=== PATIENT | male | born 1950 | race Caucasian/White ===

== ENCOUNTER 2019-01-14 17:26 | Emergency (ER) | payer OTHER ==
[~2019-01-14] VITALS: Ht 182.9 cm; Wt 94.3 kg
[~2019-01-14 17:26] MED LIST: HYDACE5 PO; NAPR500 PO; NAPR550 PO
[2019-01-14 17:58] LABS: BASOPHILS ABSOLUTE AUTO 0.05 K/mm3 (0.00-0.23); BASOPHILS PERCENT AUTO 1 % (0-2); EOSINOPHILS ABSOLUTE AUTO 0.16 K/mm3 (0.00-0.68); EOSINOPHILS PERCENT AUTO 2 % (0-6); Hematocrit 43.3 % (37.0-53.0); Hemoglobin 15.1 g/dL (13.5-17.5); IMMATURE GRAN ABSOLUTE AUTO 0.01 K/mm3 (0.00-0.10); IMMATURE GRAN PERCENT AUTO 0 % (0-1); LYMPHOCYTES ABSOLUTE AUTO 1.84 K/mm3 (0.84-5.20); LYMPHOCYTES PERCENT AUTO 23 % (21-46); MONOCYTES ABSOLUTE AUTO 0.48 K/mm3 (0.16-1.47); MONOCYTES PERCENT AUTO 6 % (4-13); Mean Corpuscular HGB 32.4 pg (26.0-34.0); Mean Corpuscular HGB Conc 34.9 g/dL (31.5-36.5); Mean Corpuscular Volume 93 fL (80-100); Mean Platelet Volume 9.1 fL (9.1-12.4); NEUTROPHILS ABSOLUTE AUTO 5.35 K/mm3 (1.96-9.15); NEUTROPHILS PERCENT AUTO 68 % (41-73); Platelet Count 295 K/mm3 (150-400); RDW Coefficient Variation 13.1 % (11.7-14.2); RDW Standard Deviation 44.8 fL (35.1-46.3); Red Blood Cell Count 4.66 M/mm3 (4.30-5.90); White Blood Cell Count 7.89 K/mm3 (4.00-11.30)
[2019-01-14 18:17] LABS: Alanine Aminotransfer (ALT/SGP 48 U/L (12-78); Albumin, Blood 4.5 g/dL (3.4-5.0); Alk Phos 112 U/L (50-136); Anion Gap 9 mmol/L (6-16); Aspartate Aminotrans (AST/SGOT 36 U/L (12-37); Bilirubin, Total 0.5 mg/dL (0.1-1.0); Blood Urea Nitrogen 19 mg/dL (8-24); Bun/Creatinine Ratio 20.8 (12.0-20.0); CO2, Blood 22 mmol/L (21-32); Calcium, Blood 9.6 mg/dL (8.5-10.1); Chloride, Blood 102 mmol/L (98-108); Creatinine, Blood 0.91 mg/dL (0.60-1.20); Globulin, Blood 4.6 g/dL (2.2-4.0); Glomerular Filtration Rate >60 (60-); Glucose, Blood 119 mg/dL (70-99); Potassium, Blood 4.4 mmol/L (3.5-5.5); Sodium, Blood 133 mmol/L (136-145); Total Protein, Blood 9.1 g/dL (6.4-8.2); Troponin I <0.015 ng/mL (0.000-0.040)
[2019-01-14 18:45] LABS: Source, Urine Clean Catch
[2019-01-14 19:01] LABS: Bilirubin, Urine Neg (Neg); Blood, Urine 4+ (Neg); Glucose Qualitative, Urine Neg (Neg); Ketones, Urine Neg (Neg); Leukocyte Esterase, Urine Neg (Neg); Nitrite, Urine Neg (Neg); Protein, Urine 2+ (Neg); Urobilinogen, Urine NORM (Normal)
[2019-01-14 19:13] LABS: Appearance, Urine Clear (Clear); Color, Urine Yellow (P-Yellow)
[2019-01-14 19:14] LABS: Squamous Epithelial Cells Mod /hpf (Few)
[2019-01-14 19:15] LABS: Bacteria Rare /hpf; Red Blood Cells, Urine 0-2 /hpf (0-2); White Blood Cells, Urine 0-2 /hpf (0-5)
[2019-04-23] MEDS ORDERED: Omega-31000 MG PO (13:07)
[2019-04-23] MEDS ORDERED: Hydrochloroth12.5 MG PO (13:07)
[2019-04-23] MEDS ORDERED: Aspir 8181 MG PO (13:07)
[2019-04-23] MEDS ORDERED: LOSARTAN POTAS100 MG PO (13:08)
[2019-04-23] MEDS ORDERED: Lipitor20 MG PO (13:09)
[2019-04-23] MEDS ORDERED: OMEPRAZOLE20 MG PO (13:09)
[2019-04-23] MEDS ORDERED: POTASSIUM GLUCONATE PO (13:11)
== END 2019-01-14 21:31 | disposition home or self-care (01) ==
LOC: ER 17:26
PROVIDERS: Emergency Medicine
DX: I10 Essential (primary) hypertension (principal); R55 Syncope and collapse; Z79.899 Other long term (current) drug therapy; F17.220 Nicotine dependence, chewing tobacco, uncomplicated
CPT/HCPCS: 36415; 71046; 80053; 81001; 83880; 84484; 85025; 93005; 93010; 99284-25

== ENCOUNTER 2019-04-24 07:57 | Day surgery (SDC) | payer OTHER ==
[~2019-04-24] VITALS: Ht 182.9 cm; Wt 100.0 kg
[~2019-04-24 07:57] MED LIST changes: +Aspir 8181 MG PO; +Hydrochloroth12.5 MG PO; +LOSARTAN POTAS100 MG PO; +Lipitor20 MG PO; +OMEPRAZOLE20 MG PO; +Omega-31000 MG PO; +POTASSIUM GLUCONATE PO
[2019-04-24] MEDS ORDERED: Isosorbide Mono30 MG PO (11:10)
--- NOTE | 2019-04-24 13:58 | NUR ---
TR BAND REMOVED. NO BLEEDING, PAIN OR HEMATOMA NOTED. SITE CLEANED AND CLOTH DOT PLACED. PT ABLE TO DRESS SELF WITH NO COMPLICATIONS. PT STATES UNDERSTANDING OF DC INSTRUCTIONS. PT PLACED IN BRACE AND SLING. VSS. PT DC'D IN WHEELCHAIR WITH FRIEND AND HOSPITAL VOLUNTEER. DENIES ANY QUESTIONS OR CONCERNS.
== END 2019-04-24 22:40 | disposition home or self-care (01) ==
LOC: MHTC 07:57
DX: I25.10 Atherosclerotic heart disease of native coronary artery without angina pectoris (principal); I11.9 Hypertensive heart disease without heart failure; E78.5 Hyperlipidemia, unspecified; F17.220 Nicotine dependence, chewing tobacco, uncomplicated; Z79.899 Other long term (current) drug therapy; Z79.82 Long term (current) use of aspirin
CPT/HCPCS: 85347; 93454; 93571; 99152; 99153; C1769; C1887; C1894; J1644; J2250; J3010; J7030; Q9967

== ENCOUNTER 2021-04-13 20:39 | Inpatient (IN) | payer OTHER ==
[~2021-04-13] VITALS: Ht 182.9 cm; Wt 96.8 kg
[~2021-04-13 20:39] MED LIST changes: +Isosorbide Mono30 MG PO; +OMEGA-3 FISH O1 EAC6 PO; -Omega-31000 MG PO
[2021-04-13 21:14] LABS: BASOPHILS ABSOLUTE AUTO 0.01 K/mm3 (0.00-0.23); BASOPHILS PERCENT AUTO 0 % (0-2); EOSINOPHILS PERCENT AUTO 0 % (0-6); Hematocrit 36.9 % (37.0-53.0); Hemoglobin 13.4 g/dL (13.5-17.5); IMMATURE GRAN ABSOLUTE AUTO 0.03 K/mm3 (0.00-0.10); IMMATURE GRAN PERCENT AUTO 0 % (0-1); LYMPHOCYTES ABSOLUTE AUTO 0.86 K/mm3 (0.84-5.20); LYMPHOCYTES PERCENT AUTO 9 % (21-46); MONOCYTES PERCENT AUTO 3 % (4-13); Mean Corpuscular HGB 32.6 pg (26.0-34.0); Mean Corpuscular HGB Conc 36.3 g/dL (31.5-36.5); Mean Corpuscular Volume 90 fL (80-100); Mean Platelet Volume 9.8 fL (9.1-12.4); NEUTROPHILS ABSOLUTE AUTO 8.24 K/mm3 (1.96-9.15); NEUTROPHILS PERCENT AUTO 87 % (41-73); Platelet Count 307 K/mm3 (150-400); RDW Coefficient Variation 12.2 % (11.7-14.2); Red Blood Cell Count 4.11 M/mm3 (4.30-5.90); White Blood Cell Count 9.44 K/mm3 (4.00-11.30)
[2021-04-13 21:28] LABS: Alanine Aminotransfer (ALT/SGP 62 U/L (12-78); Albumin, Blood 3.3 g/dL (3.4-5.0); Albumin/Globulin Ratio 0.7 (0.8-1.8); Alk Phos 69 U/L (50-136); Anion Gap 13 mmol/L (6-16); Aspartate Aminotrans (AST/SGOT 61 U/L (12-37); Bilirubin, Total 0.8 mg/dL (0.1-1.0); Blood Urea Nitrogen 37 mg/dL (8-24); Bun/Creatinine Ratio 31.1 (12.0-20.0); CO2, Blood 18 mmol/L (21-32); Calcium, Blood 8.3 mg/dL (8.5-10.1); Chloride, Blood 103 mmol/L (98-108); Creatinine, Blood 1.19 mg/dL (0.60-1.20); Glomerular Filtration Rate >60 (60-); Glucose, Blood 173 mg/dL (70-99); Potassium, Blood 3.8 mmol/L (3.5-5.5); Sodium, Blood 134 mmol/L (136-145); Total Protein, Blood 8.3 g/dL (6.4-8.2); Troponin I <0.015 ng/mL (0.000-0.040)
[2021-04-13 21:55] LABS: SARS-Cov-2 (COVID-19) PCR, MMC POSITIVE (NEGATIVE)
[2021-04-13 21:58] LABS: International Normalized Ratio 1.11; Prothrombin Time Results 11.9 Sec (9.7-11.5)
[2021-04-14] MEDS ORDERED: ASPI81CH PO (02:14)
[2021-04-14] MEDS ORDERED: ATOR10 PO (02:15)
[2021-04-14] MEDS ORDERED: HYDCHL50 PO (02:16)
[2021-04-14] MEDS ORDERED: ISOSORBIDE MONO30 MG PO (02:17)
[2021-04-14] MEDS ORDERED: LOSARTAN POTAS100 M1 PO (02:18)
[2021-04-14] MEDS ORDERED: OMEP20ER PO (02:19)
[2021-04-14] MEDS ORDERED: Potassium Gluconate PO (02:21)
[2021-04-14 04:39] LABS: BASOPHILS ABSOLUTE AUTO 0.01 K/mm3 (0.00-0.23); BASOPHILS PERCENT AUTO 0 % (0-2); EOSINOPHILS ABSOLUTE AUTO 0.01 K/mm3 (0.00-0.68); EOSINOPHILS PERCENT AUTO 0 % (0-6); Hematocrit 35.5 % (37.0-53.0); Hemoglobin 12.5 g/dL (13.5-17.5); Mean Corpuscular HGB 32.2 pg (26.0-34.0); Mean Corpuscular HGB Conc 35.2 g/dL (31.5-36.5); Mean Corpuscular Volume 92 fL (80-100); Mean Platelet Volume 9.7 fL (9.1-12.4); Platelet Count 276 K/mm3 (150-400); RDW Coefficient Variation 12.2 % (11.7-14.2); RDW Standard Deviation 41.1 fL (35.1-46.3); Red Blood Cell Count 3.88 M/mm3 (4.30-5.90); White Blood Cell Count 8.27 K/mm3 (4.00-11.30)
[2021-04-14 04:48] LABS: IMMATURE GRAN ABSOLUTE AUTO 0.03 K/mm3 (0.00-0.10); IMMATURE GRAN PERCENT AUTO 0 % (0-1); LYMPHOCYTES ABSOLUTE AUTO 1.73 K/mm3 (0.84-5.20); LYMPHOCYTES PERCENT AUTO 21 % (21-46); MONOCYTES ABSOLUTE AUTO 0.24 K/mm3 (0.16-1.47); MONOCYTES PERCENT AUTO 3 % (4-13); NEUTROPHILS ABSOLUTE AUTO 6.25 K/mm3 (1.96-9.15); NEUTROPHILS PERCENT AUTO 76 % (41-73)
[2021-04-14 05:00] LABS: Alanine Aminotransfer (ALT/SGP 57 U/L (12-78); Albumin, Blood 3.1 g/dL (3.4-5.0); Albumin/Globulin Ratio 0.7 (0.8-1.8); Alk Phos 64 U/L (50-136); Anion Gap 10 mmol/L (6-16); Aspartate Aminotrans (AST/SGOT 56 U/L (12-37); Blood Urea Nitrogen 36 mg/dL (8-24); Bun/Creatinine Ratio 30.3 (12.0-20.0); CO2, Blood 20 mmol/L (21-32); Calcium, Blood 8.5 mg/dL (8.5-10.1); Chloride, Blood 104 mmol/L (98-108); Creatinine, Blood 1.19 mg/dL (0.60-1.20); Globulin, Blood 4.7 g/dL (2.2-4.0); Glomerular Filtration Rate >60 (60-); Glucose, Blood 133 mg/dL (70-99); Potassium, Blood 3.9 mmol/L (3.5-5.5); Sodium, Blood 134 mmol/L (136-145); Total Protein, Blood 7.8 g/dL (6.4-8.2)
--- NOTE | 2021-04-14 16:53 | NUR ---
PT IS A/OX4, PLEASANT AND COOPERATIVE, THE PT IS ON O2 @ 5L/MIN VIA NC AT REST AT THIS TIME, DOWN FROM 13L/MIN O2 VIA OXYMIZER THIS AM. PT HAS VISABLE TREMORS, APPEARS MILDLY ANXIOUS. PT DENIES ANY PAIN. THE PT HAS BEEN BEDREST T/O THE DAY TODAY. CALL LIGHT IN REACH. WILL CONTINUE TO MONITOR AND ASSESS FOR CHANGES
--- NOTE | 2021-04-15 06:53 | NUR ---
SHIFT SUMMARY PT IS A 70 Y/O MALE, ADMITTED FOR ACUTE HYPOXEMIC RESPIRATORY FAILURE R/T COVID-19. HE IS A&O X 3, FORGETFUL AT TIMES. CURRENTLY ON 5L O2 VIA NC, SATTING > 90%. VITAL SIGNS STABLE. NO C/O ACUTE PAIN OR NAUSEA. NO ACUTE CHANGES IN PT CONDITION NOTED DURING THE NIGHT. WILL CONTINUE TO MONITOR AND TREAT PER EMAR UNTIL HAND OFF TO DAY SHIFT RN.
--- NOTE | 2021-04-15 17:30 | NUR ---
PT IS A/OX4, PLEASANT AND COOPERATIVE. PT DENIES ANY PAIN. THIS AM WHILE RESTING IN BED THE PT APPEARED TO BE BREATHING EASILY ON O2 @ 4L/MIN VIA NC AND WAS EXPECTING DISCHARGE,HOWEVER, THE PT WAS ASSISTED UP FOR LUNCH AND IN DOING SO HE BECAME VERY LIGHTHEADED TO THE POINT HE FELT LIKE HE WAS GOING TO FAINT. HE WAS ASSISTED TO THE CHAIR AND HIS O2 SAT'S DROPPED TO 80%. O2 WAS INCREASED TO 13L/MIN VIA OXYMIZER. DR. SINCLAIR [place] NOTIFIED AND DISCHARGE WAS POSTPONED FOR TODAY, THE PT IS RAQUEL ON 8L/MIN O2 VIA OXYMIZER AT REST. WILL CONTINUE TO MONITOR AND ASSESS FOR CHANGES, CALL LIGHT IN REACH
--- NOTE | 2021-04-16 06:24 | NUR ---
SHIFT SUMMARY A/O, ABLE TO MAKE NEEDS KNOWN. COOPERATIVE WITH CARE. CALLS AND ANSWER QUESTIONS APPROPRIATELY. NO C/O PAIN/DISCOMFORT. UP 1-2P ASSIST /c FWW TO BSC. NO ACUTE CHANGES NOTED OVERNIGHT. REMAINS ON 5L VIA OXYMIZER. O2 OFF THIS AM DURING MORNING MED PASS. SPO2 REMAINED GREATER THAN 90% DURING WHOLE ADMINISTRATION. AFTER COUGHING A FEW TIMES. O2 PLACED BACK ON R/T DESAT. NO OTHER ACUTE CHANGES NOTED OVERNIGHT. STATED REST WELL. BED REMAINS IN LOWEST POSITION. CALL LIGHT AND BELONGINGS WITHIN REACH. CONTINUE WITH CURRENT PLAN OF CARE. REPORT TO ONCOMING RN.
--- NOTE | 2021-04-16 19:10 | NUR ---
PT IS AO X 4 PT IS TREMULOUS AT TIMES, PT IS COVID POSITIVE,PT ON 5L OXYMIZER,PT IS DNR,NO ACUTE CHANGES, PT IS IN BED, BED IN LOW POSTION.CALL LIGHT WITHIN REACH. WILL CONTINUE TO MONITOR
--- NOTE | 2021-04-17 05:05 | NUR ---
PT RESTING IN BED ALERT AND ORIENTED X4 MAKING NO COMPLAITS AT THIS TIME. PT GETS ANXIOUSE WHEN UP TO CAMODE, AND STANDS THOUGH HE IS TOP HEAVY. DESATS TO LOW 80'S AT REST WITHOUT O2 HE HAS PULLED IT OFF IN HIS SLEEP. DESATS TO LOW 80'S WITH EXCERTION WELL. PT REMAINS TREMULOUS WITH ACTIVITY. sPOKE WITH SON FOR UPDATE AROUND 2300. WILL CONTINUE TO MONITOR.
--- NOTE | 2021-04-17 17:21 | NUR ---
SHIFT SUMMARY 70 YR MALE ADMITED WITH ACHUTE HYPOXICE RESP FAILURE R/T COVID 19. PT REMAINS ON 6L OXIMEIZER N/C SATS MAINTAINING IN THE 90'S. PT TOLERATES ACTIVITY FAIR AND DESATS INTO THE 80'S WHEN SITTING UP TO EDGE OF BED. PT HAS FREQUENT COUGHING EPISODES AND MD ORDERED TESSLON PEARLS TODAY TO ADDRESS. BS>274 TODAY AND REPORTED TO MD, NEW INSULIN ORDERS RECIEVED. NO OTHER CHANGES THIS SHIFT TO REPORT.
--- NOTE | 2021-04-18 07:06 | NUR ---
SHIFT SUMMARY PT IS A 71 Y/O MALE, ADMITTED FOR ACUTE HYPOXEMIC RESPIRATORY FAILURE R/T COVID. HE IS A&O X 3, ANXIOUS AT TIMES. AT HS, PT'S BLOOD SUGAR WAS 469. THE HOSPITALIST DR SUBRAMANIAN WAS NOTIFIED, AND PT WAS STARTED ON MEDIUM SLIDING SCALE AC/HS HUMALOG. HE WAS GIVEN 10 UNIT HUMALOG AND 10 UNIT SEMGLEE. NO C/O ACUTE PAIN, NAUSEA OR SOB. VITAL SIGNS STABLE. NO ACUTE CHANGES IN PT CONDITION NOTED DURING THE NIGHT. WILL CONTINUE TO MONITOR AND TREAT PER EMAR UNTIL HAND OFF TO DAY SHIFT RN.
--- NOTE | 2021-04-18 17:30 | NUR ---
Blood sugar was [address] Chaparro was caalled and RN received a new order for lispro 8 units once time and rechecked at 1530pm. Blood sugar was rechecked at again ,it was 445 , a new order of 15 units lispro was given and lantus was changed from 15 units to 40 bed time. Check CBG on 04/19/21 at 2am. Vital signs are stable . continue to monitor.
[2021-04-19 04:54] LABS: BASOPHILS ABSOLUTE AUTO 0.01 K/mm3 (0.00-0.23); BASOPHILS PERCENT AUTO 0 % (0-2); EOSINOPHILS ABSOLUTE AUTO 0.02 K/mm3 (0.00-0.68); EOSINOPHILS PERCENT AUTO 0 % (0-6); Hematocrit 35.8 % (37.0-53.0); IMMATURE GRAN ABSOLUTE AUTO 0.05 K/mm3 (0.00-0.10); IMMATURE GRAN PERCENT AUTO 1 % (0-1); LYMPHOCYTES ABSOLUTE AUTO 1.01 K/mm3 (0.84-5.20); LYMPHOCYTES PERCENT AUTO 10 % (21-46); MONOCYTES ABSOLUTE AUTO 0.19 K/mm3 (0.16-1.47); MONOCYTES PERCENT AUTO 2 % (4-13); Mean Corpuscular HGB 32.7 pg (26.0-34.0); Mean Corpuscular HGB Conc 36.3 g/dL (31.5-36.5); Mean Corpuscular Volume 90 fL (80-100); Mean Platelet Volume 10.3 fL (9.1-12.4); NEUTROPHILS ABSOLUTE AUTO 8.45 K/mm3 (1.96-9.15); NEUTROPHILS PERCENT AUTO 87 % (41-73); Platelet Count 306 K/mm3 (150-400); RDW Standard Deviation 39.6 fL (35.1-46.3); Red Blood Cell Count 3.97 M/mm3 (4.30-5.90); White Blood Cell Count 9.73 K/mm3 (4.00-11.30)
[2021-04-19 05:11] LABS: Alanine Aminotransfer (ALT/SGP 60 U/L (12-78); Albumin/Globulin Ratio 0.6 (0.8-1.8); Alk Phos 77 U/L (50-136); Anion Gap 7 mmol/L (6-16); Aspartate Aminotrans (AST/SGOT 19 U/L (12-37); Bilirubin, Total 0.6 mg/dL (0.1-1.0); Blood Urea Nitrogen 41 mg/dL (8-24); Bun/Creatinine Ratio 39.8 (12.0-20.0); CO2, Blood 22 mmol/L (21-32); Calcium, Blood 8.7 mg/dL (8.5-10.1); Chloride, Blood 103 mmol/L (98-108); Creatinine, Blood 1.03 mg/dL (0.60-1.20); Globulin, Blood 4.7 g/dL (2.2-4.0); Glomerular Filtration Rate >60 (60-); Glucose, Blood 298 mg/dL (70-99); Magnesium, Blood 2.2 mg/dL (1.6-2.4); Potassium, Blood 4.7 mmol/L (3.5-5.5); Sodium, Blood 132 mmol/L (136-145); Total Protein, Blood 7.7 g/dL (6.4-8.2)
--- NOTE | 2021-04-19 05:45 | NUR ---
SHIFT SUMMARY PT IS A 59 Y/O MALE, ADMITTED FOR ACUTE HYPOXEMIC RESPIRATORY FAILURE R/T COVID. HE IS A&O X 3, 1PA TO THE BSC. NO C/O ACUTE PAIN, NAUSEA OR SOB. ON 6L O2 VIA NC, SATTING > 90%. VITAL SIGNS STABLE. NO ACUTE CHANGES IN PT CONDITION NOTED DURING THE NIGHT. WILL CONTINUE TO MONITOR AND TREAT PER EMAR UNTIL HAND OFF TO DAY SHIFT RN.
--- NOTE | 2021-04-19 18:49 | NUR ---
Alert and oriented x3 ,continue on oxygen 6L N/C , no SOB noted. CBG ABOVE [address] SAEED was notified , recieved 10 units before lunch. CBG was 386 at dinner , Dr mann ordered another 15 units once time and recheck CBG on 04/20/21 at 2am. NO S/S hyperglycemia noted . Continue to monitor.
--- NOTE | 2021-04-19 23:53 | NUR ---
SEVERE COUGH CAUSING PATIENT TO DROP SATURATIONS INTO THE MID TO HIGH 80'S WITH INTERMITTANT BRONCHOSPASMS WHEN COUGH PROLONGED. GAVIN KATZ (2) GIVEN WITH POSITIVE RESULT AT BEDTIME.
--- NOTE | 2021-04-20 04:57 | NUR ---
PATIENT IS A&OX4, NO COMPLAINTS OF PAIN OR DISCOMFORT. DESATURATES INTO MID TO HIGH 80'S USING URINAL OR ANY VERY MINIMAL EXERTION. AROUND 0330, THE PATIENT USED THE URINAL AND WAS UNABLE TO RECOVER ON 8 LITERS OXIMIZER SO 02 WAS INCREASED TO 10 LITERS PER MINUTE. RT INFORMED. PATIENT INTERMITTANTLY ANXIOUS WHICH ALSO DROPS HIS SATS. CAPILLARY BLOOD SUGARS WERE 332 AT HS AND 293 AT 0200. 200MG TESSALON PEARLES DEFINATELY HELPED PATIENT WITH HIS COUGH
--- NOTE | 2021-04-20 18:16 | NUR ---
PATIENT IS ALERT AND ORIENTED AND COOPERATIVE WITH CARE. ON 6L O2 VIA OXYMIZER. DESATS WITH COUGHING AND WORKING WITH THERAPY BUT RECOVERS WELL ON HIS OWN. WORKED WITH PT AND OT TODAY. DIET CHANGED TO CARDIAC AND ADA TODAY. WILL CONTINUE TO MONITOR
[2021-04-21 05:26] LABS: BASOPHILS ABSOLUTE AUTO 0.03 K/mm3 (0.00-0.23); BASOPHILS PERCENT AUTO 0 % (0-2); EOSINOPHILS ABSOLUTE AUTO 0.02 K/mm3 (0.00-0.68); EOSINOPHILS PERCENT AUTO 0 % (0-6); Hematocrit 37.4 % (37.0-53.0); Hemoglobin 13.4 g/dL (13.5-17.5); IMMATURE GRAN ABSOLUTE AUTO 0.08 K/mm3 (0.00-0.10); IMMATURE GRAN PERCENT AUTO 1 % (0-1); LYMPHOCYTES ABSOLUTE AUTO 1.01 K/mm3 (0.84-5.20); LYMPHOCYTES PERCENT AUTO 8 % (21-46); MONOCYTES ABSOLUTE AUTO 0.23 K/mm3 (0.16-1.47); MONOCYTES PERCENT AUTO 2 % (4-13); Mean Corpuscular HGB 32.5 pg (26.0-34.0); Mean Corpuscular HGB Conc 35.8 g/dL (31.5-36.5); Mean Corpuscular Volume 91 fL (80-100); Mean Platelet Volume 10.3 fL (9.1-12.4); NEUTROPHILS ABSOLUTE AUTO 10.84 K/mm3 (1.96-9.15); NEUTROPHILS PERCENT AUTO 89 % (41-73); Platelet Count 322 K/mm3 (150-400); RDW Coefficient Variation 12.2 % (11.7-14.2); RDW Standard Deviation 40.8 fL (35.1-46.3); Red Blood Cell Count 4.12 M/mm3 (4.30-5.90); White Blood Cell Count 12.21 K/mm3 (4.00-11.30)
[2021-04-21 05:53] LABS: Alanine Aminotransfer (ALT/SGP 48 U/L (12-78); Albumin, Blood 2.9 g/dL (3.4-5.0); Albumin/Globulin Ratio 0.6 (0.8-1.8); Alk Phos 76 U/L (50-136); Anion Gap 8 mmol/L (6-16); Aspartate Aminotrans (AST/SGOT 18 U/L (12-37); Bilirubin, Total 0.5 mg/dL (0.1-1.0); Blood Urea Nitrogen 54 mg/dL (8-24); Bun/Creatinine Ratio 49.5 (12.0-20.0); CO2, Blood 20 mmol/L (21-32); Calcium, Blood 8.8 mg/dL (8.5-10.1); Chloride, Blood 105 mmol/L (98-108); Creatinine, Blood 1.09 mg/dL (0.60-1.20); Globulin, Blood 4.7 g/dL (2.2-4.0); Glomerular Filtration Rate >60 (60-); Glucose, Blood 240 mg/dL (70-99); Potassium, Blood 4.8 mmol/L (3.5-5.5); Sodium, Blood 133 mmol/L (136-145); Total Protein, Blood 7.6 g/dL (6.4-8.2)
--- NOTE | 2021-04-21 06:27 | NUR ---
70 year old PT with Covid 19 pneumonia & hypoxia CAD continues on BIoxx & high flow oxygen 6 l high flow. sats greater than 90% per bioxx. Up with 1 assist to BSC for bowel movement. Blood glucose contiens elevated with MD changing from 50 u semglee 1 x day to 40 units BID. BG greater than 300.
[2021-04-22 05:07] LABS: BASOPHILS ABSOLUTE AUTO 0.01 K/mm3 (0.00-0.23); BASOPHILS PERCENT AUTO 0 % (0-2); EOSINOPHILS ABSOLUTE AUTO 0.03 K/mm3 (0.00-0.68); EOSINOPHILS PERCENT AUTO 0 % (0-6); Hematocrit 41.7 % (37.0-53.0); Hemoglobin 14.9 g/dL (13.5-17.5); IMMATURE GRAN PERCENT AUTO 1 % (0-1); LYMPHOCYTES ABSOLUTE AUTO 1.47 K/mm3 (0.84-5.20); LYMPHOCYTES PERCENT AUTO 13 % (21-46); MONOCYTES ABSOLUTE AUTO 0.22 K/mm3 (0.16-1.47); MONOCYTES PERCENT AUTO 2 % (4-13); Mean Corpuscular HGB 32.7 pg (26.0-34.0); Mean Corpuscular HGB Conc 35.7 g/dL (31.5-36.5); Mean Corpuscular Volume 92 fL (80-100); Mean Platelet Volume 10.4 fL (9.1-12.4); NEUTROPHILS ABSOLUTE AUTO 9.97 K/mm3 (1.96-9.15); NEUTROPHILS PERCENT AUTO 84 % (41-73); Platelet Count 354 K/mm3 (150-400); RDW Coefficient Variation 12.3 % (11.7-14.2); RDW Standard Deviation 40.9 fL (35.1-46.3); Red Blood Cell Count 4.55 M/mm3 (4.30-5.90)
[2021-04-22 05:36] LABS: Alanine Aminotransfer (ALT/SGP 51 U/L (12-78); Albumin, Blood 3.1 g/dL (3.4-5.0); Albumin/Globulin Ratio 0.6 (0.8-1.8); Alk Phos 87 U/L (50-136); Anion Gap 10 mmol/L (6-16); Aspartate Aminotrans (AST/SGOT 23 U/L (12-37); Bilirubin, Total 0.7 mg/dL (0.1-1.0); Blood Urea Nitrogen 41 mg/dL (8-24); Bun/Creatinine Ratio 43.4 (12.0-20.0); CO2, Blood 19 mmol/L (21-32); Chloride, Blood 101 mmol/L (98-108); Creatinine, Blood 0.94 mg/dL (0.60-1.20); Globulin, Blood 5.2 g/dL (2.2-4.0); Glomerular Filtration Rate >60 (60-); Glucose, Blood 235 mg/dL (70-99); Potassium, Blood 4.8 mmol/L (3.5-5.5); Sodium, Blood 130 mmol/L (136-145); Total Protein, Blood 8.3 g/dL (6.4-8.2)
--- NOTE | 2021-04-22 06:22 | NUR ---
ENDOF SHIFT REPORT: Pt stating that he did not have any SOB, cough nor trouble breathing overnight. He is on 4.5L NC. Pt is continent and uses urinal. Pt is resting comfortably at this time.
--- NOTE | 2021-04-22 19:03 | NUR ---
SUMMARY- PT A/O X4. BEDREST TODAY, PT HAD FELT TIRED AND SLEPT MOST OF AM. WANTED TO TRY TO GET UP WITH PT AND HAD BEEN DOING LEG EXERCISES AT EDGE OF BED AND SATTING MID 90'S WITH 5L OXYMIZER. 1625 GOT UP TO BC AND HAD COUGHING ATTACK, RN TO GET ROBOTUSSIN AND BY THE TIME RETURNED SATS DROPPED TO 71%, PT PALE, CALLED TREATING ENGINEER HELPER. PT INCREASED TO AIRVO 80L/100%, AFTER RESTING NOW SATTING 95-99%. BP LOW AT 1730, CALLED DR THURSTON, [place] NS BOLUS IN PROGRESS. RR REG 20/HR NOW. AIR FLOW IN ALL LUNG RIDLEY WITH CX ONLY ON L BASE. SITTING UP IN BED AND ABLE TO TOLERATE DINNER, NO SOB, SATS 98%. ON STRICT BEDREST FOR NOW. WILL REPORT TO NOC AND HAVE THEM F/U WITH BP SOON.
--- NOTE | 2021-04-22 19:31 | NUR ---
SPOKE WITH SON EDMOND (Leoncio) AND DAD AT THE SAME TIME, DISCUSSED PT'S RESPIRATORY DISTRESS EPISODE. PT AND FAMILY BOTH DECIDED TO REMAIN FULL CODE WITH INTUBATION IF NEEDED.
--- NOTE | 2021-04-22 20:20 | NUR ---
RT AC IV 20 gauge started during rapid response no documented. PT was recieving IV bolus x 1 l & IV site WNL
--- NOTE | 2021-04-23 02:55 | NUR ---
70 year old MAle with Covid 19 hypoxia continues in enhanced droplet isolation & requires high flow hgeated oxygen via airvo to maintain sats greater than 90%. Toleration of diet ate 100% ADA diet. Newly DX diabetes oon long acting insulin BID & sliding scale PT declines diabetic teaching currently. Had rapid response yesterday for broncospamatic resp event. Lung sounds with rt sided crackle lt lobes diminished. Weaning from high flow airvo per PT. Weak deconditioned seeking placement at SNF, lacks support for home DC.
[2021-04-23 04:57] LABS: BASOPHILS ABSOLUTE AUTO 0.02 K/mm3 (0.00-0.23); BASOPHILS PERCENT AUTO 0 % (0-2); EOSINOPHILS ABSOLUTE AUTO 0.02 K/mm3 (0.00-0.68); EOSINOPHILS PERCENT AUTO 0 % (0-6); Hematocrit 37.7 % (37.0-53.0); Hemoglobin 13.6 g/dL (13.5-17.5); IMMATURE GRAN ABSOLUTE AUTO 0.05 K/mm3 (0.00-0.10); IMMATURE GRAN PERCENT AUTO 1 % (0-1); LYMPHOCYTES ABSOLUTE AUTO 1.09 K/mm3 (0.84-5.20); LYMPHOCYTES PERCENT AUTO 10 % (21-46); MONOCYTES ABSOLUTE AUTO 0.18 K/mm3 (0.16-1.47); MONOCYTES PERCENT AUTO 2 % (4-13); Mean Corpuscular HGB 32.5 pg (26.0-34.0); Mean Corpuscular HGB Conc 36.1 g/dL (31.5-36.5); Mean Corpuscular Volume 90 fL (80-100); Mean Platelet Volume 10.2 fL (9.1-12.4); NEUTROPHILS ABSOLUTE AUTO 9.28 K/mm3 (1.96-9.15); NEUTROPHILS PERCENT AUTO 87 % (41-73); Platelet Count 297 K/mm3 (150-400); RDW Coefficient Variation 12.1 % (11.7-14.2); RDW Standard Deviation 40.1 fL (35.1-46.3); Red Blood Cell Count 4.18 M/mm3 (4.30-5.90); White Blood Cell Count 10.64 K/mm3 (4.00-11.30)
[2021-04-23 05:39] LABS: Alanine Aminotransfer (ALT/SGP 45 U/L (12-78); Albumin, Blood 2.9 g/dL (3.4-5.0); Albumin/Globulin Ratio 0.6 (0.8-1.8); Alk Phos 75 U/L (50-136); Anion Gap 7 mmol/L (6-16); Aspartate Aminotrans (AST/SGOT 16 U/L (12-37); Bilirubin, Total 0.6 mg/dL (0.1-1.0); Blood Urea Nitrogen 41 mg/dL (8-24); Bun/Creatinine Ratio 46.4 (12.0-20.0); CO2, Blood 21 mmol/L (21-32); Calcium, Blood 8.9 mg/dL (8.5-10.1); Chloride, Blood 105 mmol/L (98-108); Creatinine, Blood 0.88 mg/dL (0.60-1.20); Globulin, Blood 4.6 g/dL (2.2-4.0); Glomerular Filtration Rate >60 (60-); Glucose, Blood 145 mg/dL (70-99); Potassium, Blood 4.5 mmol/L (3.5-5.5); Sodium, Blood 133 mmol/L (136-145); Total Protein, Blood 7.5 g/dL (6.4-8.2)
--- NOTE | 2021-04-23 18:15 | NUR ---
PT WAS ADMITED FOR ACUTE HYPOXIC RESPIRATORY FAILLUERE DUE TO COVID. PT HAS A HISTORY OF CAD.GERD.DVT,HLD,HTN AND DIABETES MELLITUS. PT IS ALERT ORIENTED X 4,PT IS ON V60 50L HIGH FLOW FIO2 50%.PT B/P WAS LOW THIS PM AND BOLUS OF 500ML/HR WAS GIVING AND BP IS SLIGHTLY COMING UP,PT IS BED,BED IN LOW POSITION, CALL LIGHT WITHIN WILL CONTINUE TO MONITOR.
--- NOTE | 2021-04-23 22:05 | NUR ---
BLOOD GLUCOSE PT BG 188 THIS EVENING, PT HAS NOT BEEN EATING MUCH. PT HAS 40 UNITS OF SEMGLEE ORDERED FOR BEDTIME. PT DOES NOT NORMALLY TAKE INSULIN AT HOME. SPOKE WITH DR. BENITEZ AND NOTIFIED HIM OF PT BG OF 188. HE STATES IF PT HAS NOT HAD SEMGLEE THIS ADMISSION TO GIVE 1O UNITS INSTEAD OF THE 40 UNITS. BUT IF PT HAS HAD PRIOR DOSES OF SEMGLEE TO GIVE HALF THE DOSE, 20 UNITS. PT HAS HAD PRIOR DOSES OF SEMGLEE PER EMAR. 20 UNITS OF SEMGLEE GIVEN PER ORDERS.
--- NOTE | 2021-04-24 03:34 | NUR ---
SHIFT SUMMARY PT HAS DONE WELL THIS SHIFT. PT REMAINS ON V60 FIO2 50%, SATS STAY AROUND 92%. LUNGS DIMINISHED T/O. PT RESP APPEAR E/U AT REST. PT IS A/OX4 AND COOPERATIVE WITH CARE. BP HAS BEEN STABLE AFTER FLUID BOLUS THAT WAS GIVEN YESTERAY EVENING. PT HAS REMAINED IN BED. CALLS APPROPRIATLY WHEN NEEDING ASSISTANCE. PT DENIES PAIN OR NEEDS FOR MOST OF THE NIGHT. BED IN LOWEST POSITION, CALL LIGHT WITHIN REACH.
--- NOTE | 2021-04-24 17:27 | NUR ---
PT IS ALERT ORIENTED, PT IS COVID POSITIVE,PT DENIES PAIN, N/V,PT IS ON V60,50L FOI2 50% WOTH SATS IN HIGH 90'S, PT IS STABLE IN BED, BED IN LOW POSITON,CALL LIGHT IN REACH WILL CONTINUE TO MONITOR.
--- NOTE | 2021-04-25 05:53 | NUR ---
MEDICAID PLAN COMPLIANCE DIRECTOR SUMMARY PT A/O X4, PLEASANT AND COOPERATIVE. SLEPT WELL TONIGHT. CONTINUES TO BE ON 50LPM WITH 50% FIO2 VIA AIRVO SATTING IN THE LOW TO MID 90'S. CONTINUES TO BE ON BEDREST PT DESATS QUICK. USES URINAL INDEPENDENTLY. LUNG SOUND DIM THROUGHOUT. DENIE PAIN, NAUSEA. ABLE TO MAKE NEEDS KNOWN. NO ACUTE CHANGES. CALL LIGHT WITHIN REACH, WILL CONTINUE TO MONITOR.
[2021-04-25 08:23] LABS: Hematocrit 39.8 % (37.0-53.0); Hemoglobin 14.1 g/dL (13.5-17.5); Mean Corpuscular HGB 32.3 pg (26.0-34.0); Mean Corpuscular HGB Conc 35.4 g/dL (31.5-36.5); Mean Corpuscular Volume 91 fL (80-100); Mean Platelet Volume 9.8 fL (9.1-12.4); Platelet Count 257 K/mm3 (150-400); RDW Coefficient Variation 12.2 % (11.7-14.2); RDW Standard Deviation 40.7 fL (35.1-46.3); Red Blood Cell Count 4.36 M/mm3 (4.30-5.90); White Blood Cell Count 12.61 K/mm3 (4.00-11.30)
[2021-04-25 08:36] LABS: Albumin, Blood 3.1 g/dL (3.4-5.0); Anion Gap 8 mmol/L (6-16); Blood Urea Nitrogen 28 mg/dL (8-24); Bun/Creatinine Ratio 34.6 (12.0-20.0); CO2, Blood 24 mmol/L (21-32); Chloride, Blood 104 mmol/L (98-108); Creatinine, Blood 0.81 mg/dL (0.60-1.20); Glomerular Filtration Rate >60 (60-); Glucose, Blood 91 mg/dL (70-99); Phosphorus, Blood 3.8 mg/dL (2.5-4.9); Potassium, Blood 4.2 mmol/L (3.5-5.5); Sodium, Blood 136 mmol/L (136-145)
--- NOTE | 2021-04-25 18:05 | NUR ---
SHIFT SUMMARY THE PATIENT REMAINS ON AIRVO ON 50LPM AT 50% O2. THE PATIENT HAS BEEN SATTING IN THE 90'S ALL SHIFT. THE PATIENT RECEIVED INSULIN PER SLIDING SCALE COVERAGE. NO ACUTE CHANGES THIS SHIFT. THE PATIENT IS RESTING IN BED. NO CONCERNS AT THIS TIME. THIS NURSE WILL CONTINUE TO MONITOR THE PATIENT UNTIL REPORT IS GIVEN TO THE NEXT NURSE.
--- NOTE | 2021-04-26 03:43 | NUR ---
PATIENT SUMMARY PATIENT IS ALERT AND ORIENTED X4. VS STABLE FOR PATIENT ON RA. O2 SATURATION GREATER THAN 90% ON RA TRHOUGHOUT NIGHT. NO COMPLAINTS OF SHORTNESS OF BREATH OR CHEST PAIN. ENCOURAGED PATIENT TO USE IS AT LEAST 5-10X PER HOUR AND TO INCREASE ACTIVITY TOLERATED. PATIENT COMPLETED LEG RAISES IN BED, 10 PER LEG. VOIDING. ALL CARES COMPLETED AND MEDICATIONS GIVEN ORDERED ACCORDING TO NURSING JUDGEMENT. ALL UNFINISHED CARES ENDORSED TO ONCOMING RN.
--- NOTE | 2021-04-26 17:44 | NUR ---
SHIFT SUMMARY PATIENT ALERT AND ORIENTED. THE PATIENT WORKED WITH PHYSICAL THERAPY TODAY. THE PATIENT STARTED DESATTING WITH EXERTION, THEN RECOVERED AFTER REST. PATIENT IS STILL SATTING BETWEEN 91 AND 92% ON ROOM AIR.
[2021-04-27 05:45] LABS: Albumin, Blood 2.8 g/dL (3.4-5.0); Anion Gap 9 mmol/L (6-16); Blood Urea Nitrogen 28 mg/dL (8-24); Bun/Creatinine Ratio 37.2 (12.0-20.0); CO2, Blood 20 mmol/L (21-32); Calcium, Blood 8.7 mg/dL (8.5-10.1); Chloride, Blood 103 mmol/L (98-108); Creatinine, Blood 0.75 mg/dL (0.60-1.20); Glomerular Filtration Rate >60 (60-); Glucose, Blood 147 mg/dL (70-99); Phosphorus, Blood 3.3 mg/dL (2.5-4.9); Potassium, Blood 4.4 mmol/L (3.5-5.5); Sodium, Blood 132 mmol/L (136-145)
[2021-04-27] MEDS ORDERED: LOSA25 PO (12:32)
[2021-04-27] MEDS ORDERED: Tessalon200 MG PO (12:33)
[2021-04-27] MEDS ORDERED: GLIP5 PO (12:34)
[2021-04-27] MEDS ORDERED: ROBITUSSIN DM PO (12:34)
[2021-04-27] MEDS ORDERED: METF500 PO (12:35)
[2021-04-27] MEDS ORDERED: ALBU90OI INH (12:35)
--- NOTE | 2021-04-27 16:58 | NUR ---
ATTEMPTED HOME 02 EVAL PT 93% RA SITTING UP IN BED. ASSISTED TO EOB SATS 86% ON RA. 2L O2 NC APPLIED SATS 90%. PT UP TO BSC SATS DECREASED TO THE 60'S%- SPORTS PHOTOGRAPHER CALLED.
--- NOTE | 2021-04-27 18:46 | NUR ---
SHIFT SUMMARY PT AAOX4, ABLE TO MAKE NEEDS KNOWN. ANXIOUS AT TIMES. NO C/O PAIN THIS SHIFT. DURING THIS SHIFT WHILE PATIENT WAS HAVING O2 EVAL WITH CHARGE NURSE RONNIE, PT O2 DESATED TO LOWER 60's. PT WAS PLACED ON NON REBREATHER MASK AT 15LPM, SENIOR PENSIONS ADMINISTRATOR INTIATED. PLEASE SEE CN RONNIE NOTED IN REGARDS TO EVENT. PT IS CURRENTLY ON 6LPM O2 VIA NC. SATS >92-94% PT CURRENTLY RESTING IN BED AT THIS TIME. DENIES FEELING OF ANXIETY, PT APPEARS COMFORTABLE AND CALM. PT DISCHARGE POSTPONED ORDERED BY DR. COPELAND DUE TO PATIENT'S CURRENT CONDITION. BED AT LOWEST POSITION. CALL LIGHT WITHIN REACH.
--- NOTE | 2021-04-28 04:43 | NUR ---
SHIFT SUMMARRY PATIENT QUIET THROUGH THE NIGHT. NO ACUTE MEDICAL CHANGES. PATIENT SLEPT WITH O2 AT 6L VIA NC MAINTAINING SATS AT MID 90S WITH NO DISTRSS NOTED.
[2021-04-28 05:44] LABS: Albumin, Blood 2.7 g/dL (3.4-5.0); Anion Gap 6 mmol/L (6-16); Blood Urea Nitrogen 27 mg/dL (8-24); CO2, Blood 24 mmol/L (21-32); Calcium, Blood 8.7 mg/dL (8.5-10.1); Chloride, Blood 103 mmol/L (98-108); Creatinine, Blood 0.79 mg/dL (0.60-1.20); Glomerular Filtration Rate >60 (60-); Glucose, Blood 183 mg/dL (70-99); Phosphorus, Blood 3.7 mg/dL (2.5-4.9); Potassium, Blood 4.5 mmol/L (3.5-5.5); Sodium, Blood 133 mmol/L (136-145)
[2021-04-28 10:19] LABS: PCO2 Arterial 31.8 mmHg (35-45); PO2 Arterial 78.1 mmHg (80-100); pH Blood Arterial 7.43 (7.35-7.45)
--- NOTE | 2021-04-28 18:11 | NUR ---
DISCHARGE PATIENT TRANSFERRED VIA WHEELCHAIR BY [facility] TO [facility]. DISCHARGE PACKET SENT WITH TREER. IV REMOVED WITHOUT DIFFICULTY. REPORT CALLED TO RN IN [facility] COVID UNIT. BELONGINGS SENT WITH PATIENT.
== END 2021-04-28 18:08 | DRG 177 ==
LOC: ER 20:39 → MEDS 04-14 01:54 → ENPENDDIS 04-27 12:02 → MEDS 04-28 18:08
PROVIDERS: Family Medicine; Internal Medicine; Student in an Organized Health Care Education/Training Program; ADMIT Hospitalist
PROC: 5A0955A Assistance with Respiratory Ventilation, Greater than 96 Consecutive Hours, High Flow/Velocity Cannula (ICD-10-PCS; principal; 2021-04-14)
PROC: 8E0ZXY6 Isolation (ICD-10-PCS; 2021-04-14)
PROC: 3E0333Z Introduction of Anti-inflammatory into Peripheral Vein, Percutaneous Approach (ICD-10-PCS; 2021-04-14)
PROC: XW033E5 Introduction of Remdesivir Anti-infective into Peripheral Vein, Percutaneous Approach, New Technology Group 5 (ICD-10-PCS; 2021-04-14)
DX: U07.1 COVID-19 (principal); J96.01 Acute respiratory failure with hypoxia; J12.82 Pneumonia due to coronavirus disease 2019; E87.1 Hypo-osmolality and hyponatremia; Z66 Do not resuscitate; Z20.822 Contact with and (suspected) exposure to COVID-19; E11.9 Type 2 diabetes mellitus without complications; I10 Essential (primary) hypertension; F41.0 Panic disorder [episodic paroxysmal anxiety]; E78.5 Hyperlipidemia, unspecified; K21.9 Gastro-esophageal reflux disease without esophagitis; I25.10 Atherosclerotic heart disease of native coronary artery without angina pectoris; Z98.890 Other specified postprocedural states; Z79.899 Other long term (current) drug therapy; Z79.82 Long term (current) use of aspirin; E11.65 Type 2 diabetes mellitus with hyperglycemia; R19.7 Diarrhea, unspecified
CPT/HCPCS: 36415; 36600; 71045; 71260; 80053; 80069; 82728; 82803; 82947; 83036; 83735; 83880; 84145; 84484; 85025; 85027; 85379; 85610; 86141; 93005; 93010; 94640; 94660; 94761; 94762; 96374; 97110; 97110-CQ; 97161; 97166; 97530; 97530-CQ; 97535; 99285-25; A9270; C9113; J1100; J1650; J1815; J2060; J7030; J7050; Q9967; U0004

== ENCOUNTER → 2021-05-18 | Outpatient (CLI) | payer OTHER ==
[~2021-05-18] MED LIST changes: +ALBU90OI INH; +ASPI81CH PO; +ATOR10 PO; +GLIP5 PO; +HYDCHL50 PO; +ISOSORBIDE MONO30 MG PO; +LOSA25 PO; +LOSARTAN POTAS100 M1 PO; +METF500 PO; +OMEP20ER PO; +Potassium Gluconate PO; +ROBITUSSIN DM PO; +Tessalon200 MG PO
[2021-05-18 18:34] LABS: BASOPHILS ABSOLUTE AUTO 0.07 K/mm3 (0.00-0.23); BASOPHILS PERCENT AUTO 1 % (0-2); EOSINOPHILS ABSOLUTE AUTO 0.13 K/mm3 (0.00-0.68); EOSINOPHILS PERCENT AUTO 2 % (0-6); Hematocrit 32.8 % (37.0-53.0); Hemoglobin 11.3 g/dL (13.5-17.5); IMMATURE GRAN ABSOLUTE AUTO 0.02 K/mm3 (0.00-0.10); IMMATURE GRAN PERCENT AUTO 0 % (0-1); LYMPHOCYTES ABSOLUTE AUTO 1.48 K/mm3 (0.84-5.20); LYMPHOCYTES PERCENT AUTO 21 % (21-46); MONOCYTES ABSOLUTE AUTO 0.68 K/mm3 (0.16-1.47); MONOCYTES PERCENT AUTO 10 % (4-13); Mean Corpuscular HGB 31.3 pg (26.0-34.0); Mean Corpuscular HGB Conc 34.5 g/dL (31.5-36.5); Mean Corpuscular Volume 91 fL (80-100); Mean Platelet Volume 8.9 fL (9.1-12.4); NEUTROPHILS ABSOLUTE AUTO 4.69 K/mm3 (1.96-9.15); NEUTROPHILS PERCENT AUTO 66 % (41-73); Platelet Count 496 K/mm3 (150-400); RDW Coefficient Variation 12.6 % (11.7-14.2); RDW Standard Deviation 41.7 fL (35.1-46.3); Red Blood Cell Count 3.61 M/mm3 (4.30-5.90); White Blood Cell Count 7.07 K/mm3 (4.00-11.30)
[2021-05-18 19:19] LABS: Alanine Aminotransfer (ALT/SGP 56 U/L (12-78); Albumin, Blood 2.6 g/dL (3.4-5.0); Albumin/Globulin Ratio 0.5 (0.8-1.8); Alk Phos 74 U/L (50-136); Anion Gap 10 mmol/L (6-16); Aspartate Aminotrans (AST/SGOT 49 U/L (12-37); Bilirubin, Total 0.4 mg/dL (0.1-1.0); Blood Urea Nitrogen 9 mg/dL (8-24); Bun/Creatinine Ratio 12.4 (12.0-20.0); CO2, Blood 23 mmol/L (21-32); Calcium, Blood 9.1 mg/dL (8.5-10.1); Chloride, Blood 101 mmol/L (98-108); Creatinine, Blood 0.73 mg/dL (0.60-1.20); Globulin, Blood 5.5 g/dL (2.2-4.0); Glomerular Filtration Rate >60 (60-); Glucose, Blood 93 mg/dL (70-99); Potassium, Blood 3.4 mmol/L (3.5-5.5); Sodium, Blood 134 mmol/L (136-145); Total Protein, Blood 8.1 g/dL (6.4-8.2)
[2021-05-19 10:28] LABS: C DIFFICILE DNA NEGATIVE (Negative)
== END ==
LOC: EDSTATUS 10:32 → LAB RH 17:16
PROVIDERS: Internal Medicine
DX: U07.1 COVID-19 (principal)
CPT/HCPCS: 80053; 85025; 87493

== ENCOUNTER 2021-06-02 09:02 | Inpatient (IN) | payer OTHER ==
[~2021-06-02] VITALS: Ht 177.8 cm; Wt 83.9 kg
[2021-06-02 09:33] LABS: Base Excess Venous 4.1 mmol/L; Bicarbonate Venous 27.4 mmol/L (24.0-30.0); PCO2 Venous 43.5 mmHg (38-42); PO2 Venous 58.9 mmHg (38-42); pH Blood Venous 7.43 (7.34-7.37)
[2021-06-02 09:44] LABS: BASOPHILS ABSOLUTE AUTO 0.03 K/mm3 (0.00-0.23); BASOPHILS PERCENT AUTO 0 % (0-2); EOSINOPHILS ABSOLUTE AUTO 0.18 K/mm3 (0.00-0.68); EOSINOPHILS PERCENT AUTO 1 % (0-6); Hemoglobin 12.1 g/dL (13.5-17.5); IMMATURE GRAN PERCENT AUTO 1 % (0-1); LYMPHOCYTES ABSOLUTE AUTO 2.03 K/mm3 (0.84-5.20); LYMPHOCYTES PERCENT AUTO 10 % (21-46); MONOCYTES ABSOLUTE AUTO 0.54 K/mm3 (0.16-1.47); MONOCYTES PERCENT AUTO 3 % (4-13); Mean Corpuscular HGB 30.6 pg (26.0-34.0); Mean Corpuscular HGB Conc 33.6 g/dL (31.5-36.5); Mean Corpuscular Volume 91 fL (80-100); Mean Platelet Volume 9.2 fL (9.1-12.4); NEUTROPHILS ABSOLUTE AUTO 18.03 K/mm3 (1.96-9.15); NEUTROPHILS PERCENT AUTO 86 % (41-73); Platelet Count 466 K/mm3 (150-400); RDW Coefficient Variation 13.6 % (11.7-14.2); RDW Standard Deviation 45.1 fL (35.1-46.3); Red Blood Cell Count 3.96 M/mm3 (4.30-5.90); White Blood Cell Count 20.91 K/mm3 (4.00-11.30)
[2021-06-02 10:05] LABS: Alanine Aminotransfer (ALT/SGP 56 U/L (12-78); Albumin, Blood 2.2 g/dL (3.4-5.0); Albumin/Globulin Ratio 0.4 (0.8-1.8); Alk Phos 139 U/L (50-136); Anion Gap 5 mmol/L (6-16); Aspartate Aminotrans (AST/SGOT 62 U/L (12-37); Bilirubin, Total 1.1 mg/dL (0.1-1.0); Blood Urea Nitrogen 15 mg/dL (8-24); Bun/Creatinine Ratio 27.2 (12.0-20.0); CO2, Blood 29 mmol/L (21-32); Calcium, Blood 9.7 mg/dL (8.5-10.1); Chloride, Blood 100 mmol/L (98-108); Creatinine, Blood 0.55 mg/dL (0.60-1.20); Globulin, Blood 6.1 g/dL (2.2-4.0); Glomerular Filtration Rate >60 (60-); Glucose, Blood 101 mg/dL (70-99); Potassium, Blood 4.3 mmol/L (3.5-5.5); Sodium, Blood 134 mmol/L (136-145); Total Protein, Blood 8.3 g/dL (6.4-8.2); Troponin I <0.015 ng/mL (0.000-0.040)
[2021-06-02 12:58] LABS: SARS-Cov-2 (COVID-19) PCR, MMC NEGATIVE (NEGATIVE)
--- NOTE | 2021-06-02 14:37 | NUR ---
PT ADIMITTED TO ICU 4 ON CPAP OF 10 AT 100% FIO2. GRUNTING WITH RESPIRATIONS. RESPIRATIONS AT 35-[address] ARROYO CALLED PT'S SON EDMOND AND DISCUSSED PLANS. EDMOND CAME TO BEDSIDE AND REITERATED WISHES TO STAFF. PT DOES NOT WISH TO BE UNCOMFORTABLE OR TO SUFFER BUT IS FINE WITH BIPAP. DOES NOT WANT INTUBATION OR COMPRESSIONS. DOES NOT WANT NG TUBE. ZEPEDA CATH WAS ATTEMPTED BUT WAS NOT ABLE TO ADVANCE INTO THE BLADDER AFTER 3 ATTEMPTS WITH DIFFERENT DEVICES. CONDOM CATH IN PLACE. CALL TO PALLIATIVE CARE TO MAKE SURE THEY ARE AWARE OF PT.
--- NOTE | 2021-06-02 17:03 | NUR ---
DR TORREZ INSTRUCTED RT TO SWITCH PT TO AIRVO. PT CURRENTLY AT 50L WITH 80% FIO2. STILL BREATHING 30-40 BPM AND ACCESSORY MUSCLE MOVEMENT NOTED. DR TORREZ VEIWED PT AND INSTRUCTED STAFF TO LEAVE PT ON AIRVO FOR NOW IN ORDER TO AVOID TOO MUCH PRESSURE. WHILE DR WAS AT BEDSIDE, PT'S BP NOTED TO DROP WITH MAPS IN 50S. ORDERED LEVOPHED GTT. STARTED AT 5MCG THROUGH PERIPHERAL LINE. NURSE AT BEDSIDE STARTING NEW IV.
--- NOTE | 2021-06-02 18:23 | NUR ---
SHIFT SUMMARY: PT REMAINS ON AIRVO AT 55L AND 75% FIO2. ACCESSORY MUSCLES AND DIAPHRAGM NOTED TO BE USED FOR BREATHING BUT SATURATIONS IN MID 90S. LEVOPHED AT 5MCG/KG FOR BP. PRECEDEX AT 0.3MCG/KG TO ASSIST WITH WORK OF BREATHING. PLAN IS FOR DNR STATUS WITH NO FURTHER INVASIVE MEASURES AND TO TREAT WITH CURRENT THERAPIES. PT'S SON CAME TO VISIT THIS SHIFT. NO FURTHER NEEDS AT THIS TIME.
--- NOTE | 2021-06-02 21:27 | NUR ---
ASSUMED CARE DNR. AOX4, LETHARGIC. PRECEDEX AT 0.3 MCG. NSR RATE 70S. SBP 120-130, MAINTAINED ON 5 MCG LEVO. HHFNC 55L/65%, LUNGS COARSE. TACHYPNEIC, RATE 30S. PROVIDER AWARE. CONDOM CATH, NO OUTPUT. NPO.
[2021-06-03 03:24] LABS: BASOPHILS ABSOLUTE AUTO 0.01 K/mm3 (0.00-0.23); BASOPHILS PERCENT AUTO 0 % (0-2); EOSINOPHILS ABSOLUTE AUTO 0.01 K/mm3 (0.00-0.68); EOSINOPHILS PERCENT AUTO 0 % (0-6); Hematocrit 29.7 % (37.0-53.0); Hemoglobin 9.9 g/dL (13.5-17.5); IMMATURE GRAN ABSOLUTE AUTO 0.03 K/mm3 (0.00-0.10); IMMATURE GRAN PERCENT AUTO 0 % (0-1); LYMPHOCYTES ABSOLUTE AUTO 0.91 K/mm3 (0.84-5.20); LYMPHOCYTES PERCENT AUTO 10 % (21-46); MONOCYTES ABSOLUTE AUTO 0.23 K/mm3 (0.16-1.47); MONOCYTES PERCENT AUTO 3 % (4-13); Mean Corpuscular HGB 30.1 pg (26.0-34.0); Mean Corpuscular HGB Conc 33.3 g/dL (31.5-36.5); Mean Corpuscular Volume 90 fL (80-100); Mean Platelet Volume 9.6 fL (9.1-12.4); NEUTROPHILS ABSOLUTE AUTO 8.18 K/mm3 (1.96-9.15); NEUTROPHILS PERCENT AUTO 87 % (41-73); Platelet Count 289 K/mm3 (150-400); RDW Coefficient Variation 13.4 % (11.7-14.2); RDW Standard Deviation 44.2 fL (35.1-46.3); Red Blood Cell Count 3.29 M/mm3 (4.30-5.90); White Blood Cell Count 9.37 K/mm3 (4.00-11.30)
[2021-06-03 03:42] LABS: Alanine Aminotransfer (ALT/SGP 41 U/L (12-78); Albumin, Blood 1.7 g/dL (3.4-5.0); Albumin/Globulin Ratio 0.3 (0.8-1.8); Alk Phos 115 U/L (50-136); Anion Gap 3 mmol/L (6-16); Aspartate Aminotrans (AST/SGOT 36 U/L (12-37); Bilirubin, Total 0.5 mg/dL (0.1-1.0); Blood Urea Nitrogen 13 mg/dL (8-24); Bun/Creatinine Ratio 27.4 (12.0-20.0); CO2, Blood 28 mmol/L (21-32); Calcium, Blood 8.8 mg/dL (8.5-10.1); Chloride, Blood 108 mmol/L (98-108); Creatinine, Blood 0.47 mg/dL (0.60-1.20); Glomerular Filtration Rate >60 (60-); Glucose, Blood 163 mg/dL (70-99); Magnesium, Blood 1.8 mg/dL (1.6-2.4); Potassium, Blood 4.2 mmol/L (3.5-5.5); Sodium, Blood 139 mmol/L (136-145); Total Protein, Blood 6.7 g/dL (6.4-8.2)
--- NOTE | 2021-06-03 06:54 | NUR ---
END OF SHIFT NOTE PT AOX4 BUT STILL LETHARGIC, LIKELY DUE TO PRECEDEX INFUSION. NSR RATE 70S. LEVO OFF AT 0100. SBP STAYED ABOVE 90 SINCE. MAP ALSO STAYED ABOVE 65. HHFNC 55L/80%, WOB INCREASED AND PT SATS DROPPED TO HIGH 80S. PT INCREASED TO 80% FIO2 AND IS NOW MAINTAINING LOW 90S SAT. PRECEDEX UP TO 0.4 TO HELP WITH WOB. NPO. NO BM. OLIGURIC. PT PUT OUT 50CC URINE. CHANGED CONDOM CATH.
[2021-06-03 09:26] LABS: Source, Urine Clean Catch
[2021-06-03 09:30] LABS: Appearance, Urine Clear (Clear); Bilirubin, Urine Neg (Neg); Blood, Urine 3+ (Neg); Color, Urine Yellow (P-Yellow); Glucose Qualitative, Urine Neg (Neg); Ketones, Urine Neg (Neg); Leukocyte Esterase, Urine Neg (Neg); Nitrite, Urine Neg (Neg); Protein, Urine 2+ (Neg); Specific Gravity, Urine 1.025 (1.003-1.022); Urobilinogen, Urine 1+ (Normal)
[2021-06-03 09:55] LABS: Bacteria Rare /hpf; Squamous Epithelial Cells Rare /hpf (Few)
[2021-06-03 09:56] LABS: Granular Casts 0-2 /lpf (0)
--- NOTE | 2021-06-03 17:48 | NUR ---
SHIFT SUMMARY PT REMAINS AIRVO DEPENDENT. AIRVO SETTINGS 60L, FIO2 100%. PT HAS REMAINED ALERT AND ORIENTED WITH PERIODS OF ANXEITY. PT WITH PRECEDEX ON STANDBY MOST OF THIS SHIFT, BUT PT WITH INCREASING ANXEITY THIS EVENING. PRECEDEX RESTARTED AT MCG/KG/HR. NS INFUSING TKO. PT SPO2 DROPS TO LOW 80'S RAPIDLY WHEN TALKING OR REPOSITIONING WITH LONG RECOVERY TIME. VITAL SIGNS OTHERWISE STABLE. PT WITH CONDOM CATH IN PLACE WITH DARK YELLOW OUTPUT NOTED. PT MOVES ALL EXTREMITIES INDEPENDENTLY AND SHIFTS SELF IN BED FOR COMFORT. WILL CONTINUE TO MONITOR AND REPORT OFF TO ONCOMING RN.
--- NOTE | 2021-06-03 18:47 | NUR ---
INCREASING ANXEITY PT WITH INCREASING ANXEITY AND CONTINUED DROP OF SPO2 INTO 70'S. PT PLACED ON CPAP OF 14, FIO2 100%. PRECEDEX INCREASED TO 1.4 MCG/KG/HR. DR ARROYO NOTIFIED. ORDERS RECIEVED FOR FENTANYL AND ATIVAN PRN. WILL CONTINUE TO MONITOR.
--- NOTE | 2021-06-03 23:13 | NUR ---
ASSUMED CARE PT ANXIOUS AND IN DISTRESS. PT ORIENTED. ST RATE 100S. SBP 110-120. CPAP 14. FIO2 100%. RR 40-50. INCONTINENT. CONDOM CATH. COMFORT CARE CONVERSATION HAD WITH EL PRUITT. PT TRANSITIONED TO COMFORT CARE AND ORDERS PLACED AT 2200. PT TRANSITIONED TO NC FOR COMFORT. SEE ORDERS FOR COMFORT CARE MEDS. PT PRONOUNCED AT 2249 BY JUAN TODD RN AND SAI GIFFORD RN.
== END 2021-06-03 22:49 | DRG 871 ==
LOC: ER 09:02 → ICUW 11:03 → ICUE 11:03
PROVIDERS: Emergency Medicine; Nurse Practitioner Acute Care; ADMIT Internal Medicine
PROC: 3E033XZ Introduction of Vasopressor into Peripheral Vein, Percutaneous Approach (ICD-10-PCS; principal; 2021-06-02)
PROC: 5A09457 Assistance with Respiratory Ventilation, 24-96 Consecutive Hours, Continuous Positive Airway Pressure (ICD-10-PCS; 2021-06-02)
DX: A41.9 Sepsis, unspecified organism (principal); J18.9 Pneumonia, unspecified organism; J96.21 Acute and chronic respiratory failure with hypoxia; Z66 Do not resuscitate; I10 Essential (primary) hypertension; Z20.822 Contact with and (suspected) exposure to COVID-19; R65.20 Severe sepsis without septic shock; K21.9 Gastro-esophageal reflux disease without esophagitis; E78.5 Hyperlipidemia, unspecified; F41.9 Anxiety disorder, unspecified; K27.9 Peptic ulcer, site unspecified, unspecified as acute or chronic, without hemorrhage or perforation; E11.9 Type 2 diabetes mellitus without complications; I25.10 Atherosclerotic heart disease of native coronary artery without angina pectoris; Z86.16 Personal history of COVID-19; Z98.890 Other specified postprocedural states; Z79.899 Other long term (current) drug therapy
CPT/HCPCS: 36415; 71045; 71260; 80053; 81001; 82803; 82947; 83605; 83735; 83880; 84145; 84484; 85025; 87040; 93005; 93010; 94640; 94644; 94660; 96365; 96367; 96368; 96375; 96376; 99285-25; A9270; C9113; J0456; J0696; J1100; J1650; J2060; J2270; J2543; J3010; J3370; J7030; J7050; J7060; J7120; Q9967; U0004